=== PATIENT | male | born 1945 | race Caucasian/White ===

== ENCOUNTER → 2020-11-29 | Outpatient (CLI) | payer MEDICARE ==
[2020-11-29 10:46] LABS: HEMOGLOBIN 13.2 gm/dl (14.0-17.5); RED BLOOD COUNT 4.94 M/UL (4.20-5.50); WHITE BLOOD COUNT 9.5 K/UL (4.5-11.0)
[2020-11-30 10:14] LABS: CREATININE, URINE 85.2 mg/dL (Not Estab.)
== END ==
LOC: LAB 10:12
PROVIDERS: Family Medicine
DX: E11.22 Type 2 diabetes mellitus with diabetic chronic kidney disease (principal); N18.4 Chronic kidney disease, stage 4 (severe); E55.9 Vitamin D deficiency, unspecified; E78.2 Mixed hyperlipidemia
CPT/HCPCS: 36415; 80048; 80061; 80076; 82043; 82570; 83036; 83970; 84100; 84550; 85027

== ENCOUNTER → 2021-01-27 | Outpatient (CLI) | payer MEDICARE | LOC: LAB 13:08 | PROVIDERS: Internal Medicine Nephrology | DX: N18.4 Chronic kidney disease, stage 4 (severe) (principal) | CPT/HCPCS: 36415; 80069; 83970; 84550 ==

== ENCOUNTER → 2021-02-02 | Outpatient (CLI) | payer MEDICARE | LOC: EXRD 11:18 | DX: M25.562 Pain in left knee (principal); M12.862 Other specific arthropathies, not elsewhere classified, left knee; M12.861 Other specific arthropathies, not elsewhere classified, right knee; M25.862 Other specified joint disorders, left knee; M25.861 Other specified joint disorders, right knee; M25.561 Pain in right knee | CPT/HCPCS: 73564 ==

== ENCOUNTER → 2021-04-26 | Outpatient (CLI) | payer MEDICARE ==
[2021-04-26 11:24] LABS: HEMOGLOBIN 14.5 gm/dl (14.0-17.5); WHITE BLOOD COUNT 7.1 K/UL (4.5-11.0)
== END ==
LOC: LAB 10:03
PROVIDERS: Internal Medicine Nephrology
DX: N18.5 Chronic kidney disease, stage 5 (principal)
CPT/HCPCS: 36415; 80069; 83970; 84550; 85027

== ENCOUNTER → 2021-05-11 | Outpatient (CLI) | payer MEDICARE ==
[2021-05-13 12:14] LABS: HBSAG SCREEN Negative (Negative); HEP B CORE AB, IGM Negative (Negative); HEPATITIS B SURF AB QUANT <3.1 mIU/mL (Immunity>9.9)
== END ==
LOC: LAB 15:04
PROVIDERS: Internal Medicine Nephrology
DX: N18.5 Chronic kidney disease, stage 5 (principal)
CPT/HCPCS: 36415; 86317; 86705; 87340

== ENCOUNTER 2021-08-23 20:06 | Inpatient (IN) | payer MEDICARE ==
[~2021-08-23] VITALS: Ht 177.8 cm; Wt 99.6 kg
[2021-08-24 00:35] LABS: HEMOGLOBIN 12.7 gm/dl (14.0-17.5); RED BLOOD COUNT 4.32 M/UL (4.20-5.50); WHITE BLOOD COUNT 5.8 K/UL (4.5-11.0)
[2021-08-24] MEDS ORDERED: NIFEDIPINE ER90 M1 PO (10:32)
[2021-08-24] MEDS ORDERED: LEVOFLOXACIN250 MG PO (10:32)
[2021-08-24] MEDS ORDERED: NEURONTIN300 MG PO (10:33)
[2021-08-24] MEDS ORDERED: CALCIUM ACETAT667 M1 PO (10:33)
[2021-08-24] MEDS ORDERED: SODIUM BICARBO650 MG PO (10:34)
[2021-08-24] MEDS ORDERED: LOVASTATIN20 MG PO (10:34)
[2021-08-24] MEDS ORDERED: MINOXIDIL2.5 MG PO (10:35)
[2021-08-24] MEDS ORDERED: ELIQUIS2.5 MG PO (10:35)
[2021-08-24] MEDS ORDERED: ASPIRIN81 MG PO (10:35)
[2021-08-24] MEDS ORDERED: CLONIDINE HCL0.2 MG PO (10:35)
[2021-08-24] MEDS ORDERED: FISH OIL 1,2001 EAC1 PO (10:36)
[2021-08-24] MEDS ORDERED: FUROSEMIDE80 MG PO (10:36)
[2021-08-24] MEDS ORDERED: BASAGLAR K100 UNIT/1 SQ ×2 (10:38)
[2021-08-24] MEDS ORDERED: RENAPLEX TABLE1 EACH PO (10:41)
[2021-08-24] MEDS ORDERED: OMEPRAZOLE20 MG PO (10:41)
[2021-08-25 04:09] LABS: HEMOGLOBIN 13.3 gm/dl (14.0-17.5); RED BLOOD COUNT 4.5 M/UL (4.20-5.50)
[2021-08-25 04:12] LABS: WHITE BLOOD COUNT 9.2 K/UL (4.5-11.0)
[2021-08-26 07:29] LABS: HEMOGLOBIN 12.8 gm/dl (14.0-17.5)
[2021-08-26 07:32] LABS: WHITE BLOOD COUNT 20.5 K/UL (4.5-11.0)
--- NOTE | 2021-08-26 17:52 | NUR ---
PATIENT NOTED TO BE ASYSTOLE AT 1748. VERIFIED BY MYSELF AND GILBERT DOSS. PROVIDER MADE AWARE. PROTOCOL INITIATED.
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
== END 2021-08-26 19:40 | disposition expired | DRG 919 ==
LOC: ER1 20:06 → CDU 08-24 00:39 → M/S 08-24 12:38
PROVIDERS: Family Medicine; Internal Medicine; Internal Medicine Nephrology; ADMIT Internal Medicine
PROC: 3E1M39Z Irrigation of Peritoneal Cavity using Dialysate, Percutaneous Approach (ICD-10-PCS; principal; 2021-08-24)
DX: T85.611A Breakdown (mechanical) of intraperitoneal dialysis catheter, initial encounter (principal); A41.9 Sepsis, unspecified organism; R65.21 Severe sepsis with septic shock; J69.0 Pneumonitis due to inhalation of food and vomit; J96.01 Acute respiratory failure with hypoxia; G93.41 Metabolic encephalopathy; N18.6 End stage renal disease; K65.2 Spontaneous bacterial peritonitis; N39.0 Urinary tract infection, site not specified; Z51.5 Encounter for palliative care; Z99.2 Dependence on renal dialysis; I12.0 Hypertensive chronic kidney disease with stage 5 chronic kidney disease or end stage renal disease; J98.11 Atelectasis; E87.1 Hypo-osmolality and hyponatremia; Z68.41 Body mass index [BMI] 40.0-44.9, adult; E87.2 Acidosis; E86.0 Dehydration; Y83.9 Surgical procedure, unspecified as the cause of abnormal reaction of the patient, or of later complication, without mention of misadventure at the time of the procedure; I48.0 Paroxysmal atrial fibrillation; R19.7 Diarrhea, unspecified; E66.9 Obesity, unspecified; E87.6 Hypokalemia; E78.5 Hyperlipidemia, unspecified; E11.22 Type 2 diabetes mellitus with diabetic chronic kidney disease; E11.40 Type 2 diabetes mellitus with diabetic neuropathy, unspecified; Z79.01 Long term (current) use of anticoagulants; Z79.4 Long term (current) use of insulin
CPT/HCPCS: 36415; 36600; 70450; 71045; 80053; 82140; 82550; 82553; 82803; 82962; 83036; 83605; 83735; 83880; 84100; 84484; 85007; 85025; 85027; 85652; 86140; 87040; 87449; 90945; 93005; 94640; 94664; 94668; 94760; 99285; C9113; J0696; J1335; J1644; J1650; J3370; J7030; J7070; U0002